=== PATIENT | female | born 1985 | race African-American/Black ===

== ENCOUNTER 2016-09-04 05:41 | Day surgery (SDC) | payer OTHER ==
[2016-09-01 13:07] VITALS: BMI 27.4
[~2016-09-04 05:41] MED LIST: ceFAZolin SODIUM 1 GM VIAL IVPB ONE
[2016-09-04] MEDS ORDERED: ACETAMINOPHEN 325 MG TABLET (FP) PO PRN (07:01)
[2016-09-04] MEDS ORDERED: IBUPROFEN 400 MG TABLET (FP) PO PRN (07:01)
--- NOTE | 2016-09-04 07:02 | HP ---
History & Physical Update - History History: No Change - Physical Physical: No Change - Assessment Assessment: No Change - Plan Plan: No Change
[2016-09-04] MEDS ORDERED: SUCCINYLCHOLINE CHLORIDE 200 MG/10 ML VIAL ONE (07:40)
[2016-09-04] MEDS ORDERED: ceFAZolin SODIUM 1 GM VIAL ONE (07:40)
[2016-09-04] MEDS ORDERED: PROPOFOL 20 ML ONE ×2 (07:40)
[2016-09-04] MEDS ORDERED: LIDOCAINE HCL 2% JELLY (5 ML/TUBE) ONE (07:41)
[2016-09-04] MEDS ORDERED: KETOROLAC TROMETHAMINE 30 MG/1 ML VIAL ONE (07:41)
[2016-09-04] MEDS ORDERED: MIDAZOLAM HCL 2 MG/2 ML SINGLE DOSE VIAL ONE (07:41)
[2016-09-04] MEDS ORDERED: DEXAMETHASONE SOD PHOSPHATE 4 MG/1 ML VIAL ONE (07:41)
[2016-09-04] MEDS ORDERED: LIDOCAINE HCL/PF 2% SDV 5ML VIAL ONE (07:41)
--- NOTE | 2016-09-04 09:09 | OP ---
Operative Note - Note: Operative Date: 09/04/16 Pre-Operative Diagnosis: cervical dysplasia. HPV Operation: Leep Cone biopsy Findings: large pale areas seen after lugols placed Post-Operative Diagnosis: Same as Pre-op Surgeon: Lissette Rodriguez Anesthesia: General Specimens Removed: Cervical Cone Estimated Blood Loss (mls): 5 Operative Report Dictated: Yes
[2016-09-04] MEDS ORDERED: LACTATED RINGERS SOLUTION 1,000 ML IV SCH (09:15)
[2016-09-04] MEDS ORDERED: oxyCODONE HCL 5 MG TABLET PO PRN ×2 (11:02)
[2016-09-04] MEDS ORDERED: ONDANSETRON 4 MG/2 ML VIAL IVPUSH PRN (11:02)
[2016-09-04 12:21] VITALS: BP 120/76; PULSE 76; TEMP 98.4
--- NOTE | 2016-09-04 15:37 | OP ---
DATE OF OPERATION: 09/04/2016 OPERATION: LEEP cone PREOPERATIVE DIAGNOSIS: Cervical dysplasia and HPV POSTOPERATIVE DIAGNOSIS: Cervical dysplasia and HPV. SURGEON: Lissette Rodriguez MD ANESTHESIA: General. FINDINGS: Cervix was dilated with Lugol's prior to surgical cone. DESCRIPTION OF PROCEDURE: Patient was taken to the operating room, placed in the dorsal lithotomy position, prepped and draped in the usual sterile fashion. A timeout was performed in accordance with hospital regulation. A speculum was placed in the vagina, and the cervix was then seen, and Lugol's was then painted onto the cervix. Pale areas were seen on the cervix, and a large LEEP cone was then performed. A specimen was tagged at 12 o'clock and submitted to pathology. Cautery with a bulb was then used to coagulate the rest of the cervix, and hemostasis was achieved. Monsel's was then placed on the cervix for further hemostasis. All instruments were then removed. Estimated blood loss was 5 mL. Patient tolerated the procedure well and was taken to the recovery room in stable condition. LISSETTE RODRIGUEZ M.D. [id number]
--- NOTE | 2016-09-06 12:06 | PATH ---
Surgical Pathology Report Patient Name: SONAL BLANCA [facility]. Rec. #: [id number] /Age/Gender: 1985 (Age: 31) / F Account: [id number] Location: [facility] Taken: 09/04/2016 Received: 09/05/2016 Reported: 09/06/2016 Physicians: Lissette Rodriguez M.D. Specimen(s) Received CERVICAL LEEP CONE BIOPSY STITCH AT 12:00 Clinical History HPV Final Diagnosis CERVIX, LEEP CONE BIOPSY: CERVICAL SQUAMOUS AND ENDOCERVICAL MUCOSA WITH FOCAL HIGH GRADE SQUAMOUS INTRAEPITHELIAL LESION (CERVICAL INTRAEPITHELIAL NEOPLASIA 2/SERGEY 2), PRESENT IN 9-12:00 QUADRANT; BACKGROUND LOW GRADE SQUAMOUS INTRAEPITHELIAL LESION (SERGEY 1) PRESENT IN ALL QUADRANTS. SURGICAL RESECTION MARGINS: NEGATIVE FOR DYSPLASIA. TRANSFORMATION ZONE: PRESENT. Electronically Signed Billy Mendoza M.D. Gross Description Received in formalin labeled "cervical LEEP cone biopsy" is a 1.7 cm in diameter santana, annular portion of soft tissue, consistent with a cervical LEEP cone biopsy. There is a suture present marking the 12:00 aspect of the specimen, per the surgeon. The specimen is partially surfaced by a santana-pink, shiny and glistening mucosa. The specimen is inked green, serially sectioned and entirely and sequentially submitted in 4 cassettes as follows: 1-12:00 to 3:00; 2-3:00 to 6:00; 3-6:00 to 9:00; 4-9:00 to 12:00. /09/05/2016 saudi/09/05/2016
== END 2016-09-04 11:45 | disposition home or self-care (01) ==
LOC: JASU-SURG 05:41
PROVIDERS: ATTEND Obstetrics & Gynecology
PROC: 0UBC7ZX Excision of Cervix, Via Natural or Artificial Opening, Diagnostic (ICD-10-PCS; principal; 2016-09-04 08:00)
DX: N87.1 Moderate cervical dysplasia (principal); R87.810 Cervical high risk human papillomavirus (HPV) DNA test positive
CPT/HCPCS: 88307-TC; 94760